=== PATIENT | female | born 1990 ===

== ENCOUNTER 2017-01-05 13:14 | Emergency (ER) | payer OTHER ==
[2017-01-05 13:15] VITALS: BMI 27.2
[2017-01-05 13:23] VITALS: BP 129/93; PULSE 73; RESP 16; TEMP 98.7; O2SAT 100
--- NOTE | 2017-01-05 13:52 | ED PDOC ---
Upper Extremity Pain/Injury Time Seen by Provider: 01/05/17 13:30 Chief Complaint (Nursing): Upper Extremity Problem/Injury Chief Complaint (Provider): Upper Extremity Problem/Injury History Per: Patient, Other (Boyfriend) History/Exam Limitations: no limitations Onset/Duration Of Symptoms: Days Current Symptoms Are (Timing): Still Present Additional Complaint(s): 26 y/o female presents to the emergency department with a complaint of a right shoulder pain since waking up this morning. Pain worsens with movement and is described as an intermittently sharp and tingling sensation radiating from the right shoulder down to the right elbow. Associated with dizziness (room spinning ) but had resolved since. As per history from boyfriend, patient was exercising her upper shoulders 2 days ago with 10 pound weight when she began to feel slight pain. Patient then exercised her shoulders again yesterday with five pound weight that made the pain worse. Reports using Bengay cream with minimal relief of pain Past Medical History Reviewed: Historical Data, Nursing Documentation, Vital Signs Vital Signs: Last Vital Signs Temp 98.7 F 01/05/17 13:20 Pulse 73 01/05/17 13:20 Resp 16 01/05/17 13:20 BP 129/93 H 01/05/17 13:20 Pulse Ox 100 01/05/17 13:20 - Medical History PMH: Migraine - Social History Current smoker - smoking cessation education provided: Yes (Light Smoker < 10 Cigarettes Daily ) Alcohol: Social Drugs: Cannabis - Home Medications Home Medications: Ambulatory Orders Medication Instructions Recorded No Known Home Med 01/05/17 - Allergies Allergies/Adverse Reactions: Allergies Allergy/AdvReac Type Severity Reaction Status Date / Time No Known Allergies Allergy Verified 01/05/17 13:20 Review of Systems ROS Statement: Except As Marked, All Systems Reviewed And Found Negative Cardiovascular: Negative for: Chest Pain Musculoskeletal: Positive for: Shoulder Pain (Right), Arm Pain (Right), Other ( Intermittent tinging radiating from the right shoulder that stops at the right elbow. ). Negative for: Back Pain Neurological: Positive for: Dizziness (Room spinning (had resolved since) ). Negative for: Numbness Physical Exam - Reviewed Nursing Documentation Reviewed: Yes Vital Signs Reviewed: Yes - Physical Exam Appears: Positive for: Non-toxic, No Acute Distress Head Exam: Positive for: ATRAUMATIC, NORMOCEPHALIC Skin: Positive for: Normal Color, Warm, Dry Extremity: Positive for: Normal ROM (Full ROM and rotation of the shoulder and elbow. Neurovascularly intact. Pronation and supination is normal. Axillary nerves intact. ). Negative for: Tenderness (No AC joint tenderness. No scapular tenderness. No clavicle tenderness. ), Deformity, Other ( Negative apprehension test) Neurologic/Psych: Positive for: Alert, Oriented - ECG O2 Sat by Pulse Oximetry: 100 (RA) Pulse Ox Interpretation: Normal Medical Decision Making Medical Decision Making: Time: 13:30 Initial impression: Shoulder strain status post injury Initial plan: --UPreg Test --Toradol 30 mg IM --Revaluation --Patient was advised to stay away from weight lifting x1 to 2 weeks. --If pain is persistent to follow up with orthopedic for an MRI and further testing. Scribe Attestation: Documented by Gina Austin, acting as a scribe for Yesica Daniels PA-C. Provider Scribe Attestation: All medical record entries made by the Scribe were at my direction and personally dictated by me. I have reviewed the chart and agree that the record accurately reflects my personal performance of the history, physical exam, medical decision making, and the department course for this patient. I have also personally directed, reviewed, and agree with the discharge instructions and disposition.
== END 2017-01-05 14:10 | disposition home or self-care (01) ==
LOC: H.ER 13:14
DX: M25.511 Pain in right shoulder (principal)

== ENCOUNTER 2017-06-25 13:47 | Emergency (ER) | payer MEDICAID, OTHER ==
[2017-06-25 13:47] VITALS: BMI 27.2
[2017-06-25 13:59] VITALS: O2SAT 100
[2017-06-25] MEDS ORDERED: Sodium Chloride 0.9% 1,000 ML IV STA ×2 (14:16→17:43)
--- NOTE | 2017-06-25 14:18 | ED PDOC ---
HPI: Abdomen Time Seen by Provider: 06/25/17 14:08 Chief Complaint (Nursing): Abdominal Pain Chief Complaint (Provider): Vomiting and diarrhea History Per: Patient Additional Complaint(s): 27 yo female, no PMH, presents to ED brought in by ambulance with c.o abdominal pain associated with nausea and vomiting since earlier today. Pt states she consumed an energy drink, banana and breakfast sandwich from waking up till ~ noon. Pt doing well prior to the onset of symptoms ~ 1.5 hours ago Past Medical History Reviewed: Nursing Documentation, Vital Signs Vital Signs: Last Vital Signs Temp 98.4 F 06/25/17 17:10 Pulse 62 06/25/17 17:10 Resp 18 06/25/17 17:10 BP 142/90 06/25/17 17:10 Pulse Ox 100 06/25/17 17:10 - Medical History PMH: Migraine - Surgical History Surgical History: No Surg Hx - Family History Family History: States: No Known Family Hx - Living Arrangements Living Arrangements: With Family - Social History Current smoker - smoking cessation education provided: No Alcohol: Social Drugs: Denies - Home Medications Home Medications: Ambulatory Orders Medication Instructions Recorded Ondansetron ODT [Zofran ODT] 4 mg PO Q6 PRN #10 odt 06/25/17 - Allergies Allergies/Adverse Reactions: Allergies Allergy/AdvReac Type Severity Reaction Status Date / Time No Known Allergies Allergy Verified 01/05/17 13:20 Review of Systems ROS Statement: Except As Marked, All Systems Reviewed And Found Negative Gastrointestinal: Positive for: Nausea, Vomiting, Abdominal Pain Physical Exam - Reviewed Nursing Documentation Reviewed: Yes Vital Signs Reviewed: Yes - Physical Exam Appears: Positive for: Non-toxic, No Acute Distress, Uncomfortable Head Exam: Positive for: ATRAUMATIC, NORMAL INSPECTION, NORMOCEPHALIC Skin: Positive for: Normal Color, Warm, DRY Eye Exam: Positive for: EOMI, Normal appearance, PERRL ENT: Positive for: Normal ENT Inspection Neck: Positive for: Normal, Painless ROM Cardiovascular/Chest: Positive for: Regular Rate, Rhythm Respiratory: Positive for: CNT, Normal Breath Sounds Gastrointestinal/Abdominal: Positive for: Normal Exam, Bowel Sounds, Soft. Negative for: Tenderness Back: Positive for: Normal Inspection Extremity: Positive for: Normal ROM Neurologic/Psych: Positive for: Alert, Oriented - Laboratory Results Result Diagrams: 06/25/17 14:25 06/25/17 14:25 - ECG O2 Sat by Pulse Oximetry: 100 Medical Decision Making Medical Decision Making: IV access established and treatment initiated with IVF, Zofran and Pepcid. Pt on re-eval report pain is improved, nausea continues. IV Reglan administered. On second re-eval, Pt asleep in NAD. Labs resulted and reviewed with Pt 19:00. Pt resting with boyfriend at bedside. Abdomen soft, non tender and non distended. Pt afebrile. Pt tolerating PO. Stable for discharge at this time. Disposition - Clinical Impression Clinical Impression: Gastroenteritis due to food toxin - Patient ED Disposition Is Patient to be Admitted: No - Disposition Disposition: Routine/Home Disposition Time: 20:12 Condition: STABLE Prescriptions: Ondansetron ODT [Zofran ODT] 4 mg PO Q6 PRN #10 odt PRN Reason: Nausea/Vomiting Instructions: Gastroenteritis (ED) Forms: [employer] (Malaysian)
[2017-06-25 14:33] LABS: BASO % 0.4 % (0.0-2.0); EOS % 0.3 % (0.0-4.0); HEMATOCRIT 41.6 % (34.0-47.0); LYMPH # 1.5 K/uL (1.0-4.3); LYMPH % 21.3 % (20.0-40.0); MEAN CELL VOLUME 101.3 fl (81.0-99.0); MEAN CORPUSCULAR HEMOGLOBIN 35.1 pg (27.0-31.0); MEAN CORPUSCULAR HGB CONC 34.7 g/dL (33.0-37.0); MEAN PLATELET VOLUME 8.8 fl (7.2-11.7); MONO # 0.3 K/uL (0.0-0.8); MONO % 4.3 % (0.0-10.0); NEUT # 5.2 K/uL (1.8-7.0); NEUT % 73.7 % (50.0-75.0); NRBC % 0.1 % (0.0-0.0)
[2017-06-25 14:44] LABS: ALB/GLOB RATIO 1.6 (1.0-2.1); ALKALINE PHOSPHATASE 57 U/L (38-126); ALT/SGPT 46 U/L (9-52); AST/SGOT 26 U/L (14-36); BILIRUBIN,TOTAL 0.6 mg/dl (0.2-1.3); BLOOD UREA NITROGEN 15 mg/dl (7-17); CALCIUM 9.5 mg/dL (8.4-10.2); CARBON DIOXIDE 24 mmol/L (22-30); CHLORIDE 107 mmol/L (98-107); GFR AFRICAN-AMERICAN > 60; GLUCOSE,RANDOM 115 mg/dL (65-105); POTASSIUM 3.8 MMOL/L (3.6-5.0); SODIUM 144 mmol/l (132-148); TOTAL PROTEIN 7.8 G/DL (6.3-8.2)
[2017-06-25 14:49] LABS: URINE BACTERIA RARE (<OCC); URINE BILIRUBIN NEGATIVE (NEGATIVE); URINE BLOOD SMALL (NEGATIVE); URINE COLOR YELLOW (YELLOW); URINE GLUCOSE (UA) NEG (Normal); URINE KETONE 20 mg/dL (NEGATIVE); URINE LEUKOCYTE ESTERASE NEG Leu/uL (Negative); URINE PROTEIN 100 mg/dL (NEGATIVE); URINE UROBILINOGEN 0.2-1.0 mg/dL (0.2-1.0)
[2017-06-25 14:50] LABS: RBC URINE 10 /hpf (0-3); WBC URINE 3 /hpf (0-5)
[2017-06-25 17:10] VITALS: RESP 18; TEMP 98.4
[2017-06-25 21:01] VITALS: BP 144/74; PULSE 74
== END 2017-06-25 21:07 | disposition home or self-care (01) ==
LOC: H.ER 13:47
DX: K52.9 Noninfective gastroenteritis and colitis, unspecified (principal)
CPT/HCPCS: 80053; 81003; 81025; 84702; 85025; 96361; 96374; 96375; 96376; 99283; J2405; J2765; J7040

== ENCOUNTER 2017-06-27 07:29 | Emergency (ER) | payer MEDICAID ==
[2017-06-27 07:32] VITALS: BMI 25.5
[2017-06-27] MEDS ORDERED: Sodium Chloride 0.9% 1,000 ML IV STA (08:36)
--- NOTE | 2017-06-27 08:52 | ED PDOC ---
HPI: Abdomen Time Seen by Provider: 06/27/17 08:04 Chief Complaint (Nursing): GI Problem Chief Complaint (Provider): Vomiting History Per: Patient History/Exam Limitations: no limitations Onset/Duration Of Symptoms: Days (x3) Current Symptoms Are (Timing): Still Present Additional Complaint(s): Kasey Skinner is a 27 year old female with a past medical history of migraines who presents to the ED complaining of vomiting x3 days. Patient was evaluated at the ED 2 days ago and discharged home with prescription for Zofran which she states she lost. Confirms abdominal pain. Denies fever, diarrhea, dysuria and hematuria. PMD: Provider TBD Past Medical History Reviewed: Historical Data, Nursing Documentation, Vital Signs Vital Signs: Last Vital Signs Temp 98.0 F 06/27/17 14:06 Pulse 56 L 06/27/17 14:06 Resp 18 06/27/17 14:06 BP 100/60 06/27/17 14:06 Pulse Ox 100 06/27/17 14:12 - Medical History PMH: Migraine - Surgical History Surgical History: No Surg Hx - Family History Family History: States: Unknown Family Hx - Social History Current smoker - smoking cessation education provided: Yes (<10 smokes per day) Alcohol: Social Drugs: Cannabis - Home Medications Home Medications: Ambulatory Orders Medication Instructions Recorded Ondansetron ODT [Zofran ODT] 4 mg PO Q6 PRN #10 odt 06/25/17 Dicyclomine [Bentyl] 20 mg PO QID PRN #10 tab 06/27/17 Famotidine [Pepcid] 20 mg PO BID #20 tab 06/27/17 Ondansetron [Zofran Odt] 4 mg PO Q8H PRN #15 odt 06/27/17 - Allergies Allergies/Adverse Reactions: Allergies Allergy/AdvReac Type Severity Reaction Status Date / Time No Known Allergies Allergy Verified 06/27/17 07:39 Review of Systems ROS Statement: Except As Marked, All Systems Reviewed And Found Negative Constitutional: Negative for: Fever Gastrointestinal: Positive for: Vomiting, Abdominal Pain. Negative for: Diarrhea Genitourinary Female: Negative for: Dysuria, Hematuria Physical Exam - Reviewed Nursing Documentation Reviewed: Yes Vital Signs Reviewed: Yes - Physical Exam Appears: Positive for: Non-toxic, In Acute Distress (Mild painful distress) Head Exam: Positive for: ATRAUMATIC, NORMAL INSPECTION, NORMOCEPHALIC Skin: Positive for: Normal Color, Warm, Dry Eye Exam: Positive for: EOMI, Normal appearance, PERRL Neck: Positive for: Normal, Painless ROM, Supple Cardiovascular/Chest: Positive for: Regular Rate, Rhythm. Negative for: Murmur Respiratory: Positive for: Normal Breath Sounds. Negative for: Respiratory Distress Gastrointestinal/Abdominal: Positive for: Soft, Tenderness (RLQ). Negative for : Guarding, Rebound Back: Positive for: Normal Inspection. Negative for: L CVA Tenderness, R CVA Tenderness, Vertebral Tenderness Extremity: Positive for: Normal ROM. Negative for: Pedal Edema, Deformity Neurologic/Psych: Positive for: Alert, Oriented - Laboratory Results Result Diagrams: 06/27/17 09:03 06/27/17 09:03 - ECG O2 Sat by Pulse Oximetry: 100 (RA) Pulse Ox Interpretation: Normal Medical Decision Making Medical Decision Making: Time: 08:35 Initial Impression: Ovarian torsion vs. appendicitis Plan: --CT Abdomen and Pelvis IV Contrast Only --CMP --Lipase --Urine --Urine dipstick --CBC w/ differential --Dilaudid 1 mg IV --Sodium Chloride 0.9% 1,000 ml IV --Zofran [Inj] 4 mg IV --Urinalysis --Reevaluation Time: 12:26 CT Abdomen/Pelvis: FINDINGS: LOWER THORAX: Minimal pleural thickening at the right base. LIVER: Unremarkable. No gross lesion or ductal dilatation. GALLBLADDER AND BILE DUCTS: Unremarkable. PANCREAS: Unremarkable. No gross lesion or ductal dilatation. SPLEEN: Unremarkable. ADRENALS: Unremarkable. No mass. KIDNEYS AND URETERS: Unremarkable. No hydronephrosis. No solid mass. VASCULATURE: Unremarkable. No aortic aneurysm. BOWEL: Unremarkable. No obstruction. No gross mural thickening. APPENDIX: Normal appendix. PERITONEUM: Unremarkable. No free fluid. No free air. LYMPH NODES: Unremarkable. No enlarged lymph nodes. BLADDER: Unremarkable. REPRODUCTIVE: Unremarkable. BONES: No acute fracture. OTHER FINDINGS: None. IMPRESSION: Essentially unremarkable contrast enhanced CT of the abdomen and pelvis. Time: 12:39 --Ordered US Pelvis/Transvag --Second dose IV zofran given Scribe Attestation: Documented by Jose Carlos Bro acting as a scribe for Elayne Gray MD. Scribe Attestation: All medical record entries made by the Scribe were at my direction and personally dictated by me. I have reviewed the chart and agree that the record accurately reflects my personal performance of the history, physical exam, medical decision making, and the department course for this patient. I have also personally directed, reviewed, and agree with the discharge instructions and disposition. Disposition - Clinical Impression Clinical Impression: Abdominal pain - Disposition Referrals: [facility] [Outside] Disposition: Routine/Home Disposition Time: 16:37 Condition: STABLE Prescriptions: Dicyclomine [Bentyl] 20 mg PO QID PRN #10 tab PRN Reason: Pain, Moderate (4-7) Famotidine [Pepcid] 20 mg PO BID #20 tab Ondansetron [Zofran Odt] 4 mg PO Q8H PRN #15 odt PRN Reason: Nausea/Vomiting Instructions: Abdominal Pain (ED) Forms: [employer] (Ukrainian)
[2017-06-27 09:14] LABS: BASO % 0.1 % (0.0-2.0); HEMATOCRIT 40.6 % (34.0-47.0); LYMPH # 0.9 K/uL (1.0-4.3); LYMPH % 11.7 % (20.0-40.0); MEAN CELL VOLUME 101.7 fl (81.0-99.0); MEAN CORPUSCULAR HEMOGLOBIN 35.3 pg (27.0-31.0); MEAN CORPUSCULAR HGB CONC 34.8 g/dL (33.0-37.0); MEAN PLATELET VOLUME 9.2 fl (7.2-11.7); MONO # 0.1 K/uL (0.0-0.8); MONO % 1.5 % (0.0-10.0); NEUT # 6.4 K/uL (1.8-7.0); NEUT % 86.7 % (50.0-75.0); NRBC % 0.1 % (0.0-0.0); RED CELL DISTRIBUTION WIDTH 13.2 % (11.5-14.5); WHITE BLOOD COUNT 7.3 K/uL (4.8-10.8)
[2017-06-27 09:19] LABS: ALB/GLOB RATIO 1.6 (1.0-2.1); ALKALINE PHOSPHATASE 44 U/L (38-126); ALT/SGPT 40 U/L (9-52); AST/SGOT 21 U/L (14-36); BILIRUBIN,TOTAL 0.5 mg/dl (0.2-1.3); BLOOD UREA NITROGEN 12 mg/dl (7-17); CALCIUM 8.8 mg/dL (8.4-10.2); CARBON DIOXIDE 26 mmol/L (22-30); CHLORIDE 105 mmol/L (98-107); GFR AFRICAN-AMERICAN > 60; GLUCOSE,RANDOM 133 mg/dL (65-105); LIPASE 63 U/L (23-300); POTASSIUM 3.4 MMOL/L (3.6-5.0); SODIUM 139 mmol/l (132-148); TOTAL PROTEIN 7.1 G/DL (6.3-8.2)
[2017-06-27] MEDS ORDERED: Iohexol 300 100 ML IJ ONE (11:20)
[2017-06-27] MEDS ORDERED: Sodium Chloride 0.9% 50 ML IV ONE (11:21)
--- NOTE | 2017-06-27 12:28 | CT ---
PROCEDURE: CT Abdomen and Pelvis with contrast HISTORY: RLQ pain COMPARISON: 04/24/2015. TECHNIQUE: Contrast dose: Radiation dose: Total exam DLP = mGy-cm. This CT exam was performed using one or more of the following dose reduction techniques: Automated exposure control, adjustment of the mA and/or kV according to patient size, and/or use of iterative reconstruction technique. FINDINGS: LOWER THORAX: Minimal pleural thickening at the right base. LIVER: Unremarkable. No gross lesion or ductal dilatation. GALLBLADDER AND BILE DUCTS: Unremarkable. PANCREAS: Unremarkable. No gross lesion or ductal dilatation. SPLEEN: Unremarkable. ADRENALS: Unremarkable. No mass. KIDNEYS AND URETERS: Unremarkable. No hydronephrosis. No solid mass. VASCULATURE: Unremarkable. No aortic aneurysm. BOWEL: Unremarkable. No obstruction. No gross mural thickening. APPENDIX: Normal appendix. PERITONEUM: Unremarkable. No free fluid. No free air. LYMPH NODES: Unremarkable. No enlarged lymph nodes. BLADDER: Unremarkable. REPRODUCTIVE: Unremarkable. BONES: No acute fracture. OTHER FINDINGS: None. IMPRESSION: Essentially unremarkable contrast enhanced CT of the abdomen and pelvis.
[2017-06-27 14:07] VITALS: BP 100/60; PULSE 56; RESP 18; TEMP 98; O2SAT 100
[2017-06-27] MEDS ORDERED: Potassium Chloride 20 mEq ER Tab PO STA (16:01)
[2017-06-27] MEDS ORDERED: Potassium Chloride 20 mEq ER Tab PO ONE (16:19)
--- NOTE | 2017-06-27 17:19 | US ---
HISTORY: Right lower quadrant pain. Menstrual status: LMP 05/28/2017. Regular cycles COMPARISON: June 27, 2017. CT abdomen and pelvis. 04/24/2015 pelvic ultrasound TECHNIQUE: Transabdominal, transvaginal. Real -time technique with 2D, duplex and color Doppler. FINDINGS: UTERUS: Measures 3.2 x 5.6 x 8.8 cm. Normal in size and appearance. No fibroid or other mass lesion seen. ENDOMETRIUM: Measures 3.4 mm in diameter. No ultrasound findings to suggest gestational sac, fluid, debris, mass or polyp or other pathologic process within the endometrium. CERVIX: No cervical abnormality identified. RIGHT OVARY: Measures 1.5 x 2.2 x 2.4 cm. No solid mass. Normal flow. Multiple subcentimeter follicles. LEFT OVARY: Measures 1.9 x 3.2 x 3.5 cm. No solid mass. Normal flow. Multiple subcentimeter follicles. FREE FLUID: No significant free fluid noted. OTHER FINDINGS: None. IMPRESSION: No significant or acute findings to account for/ related to the clinical presentation.
== END 2017-06-27 16:42 | disposition home or self-care (01) ==
LOC: H.ER 07:29
DX: R10.9 Unspecified abdominal pain (principal)
CPT/HCPCS: 74177; 76830; 76856; 80053; 81025; 83690; 85025; 96361; 96374; 96375; 96376; 99284; J1170; J1885; J2405; J7040; Q9967

== ENCOUNTER 2017-10-29 20:30 | Emergency (ER) | payer SELFPAY ==
[2017-10-29 20:30] VITALS: BMI 25.5
[2017-10-29 21:42] VITALS: BP 136/97; PULSE 69; RESP 18; TEMP 97.9; O2SAT 100
[2017-10-29] MEDS ORDERED: Sodium Chloride 0.9% 1,000 ML IV STA (22:10)
--- NOTE | 2017-10-29 23:34 | ED PDOC ---
HPI: Headache Time Seen by Provider: 10/29/17 21:54 Chief Complaint (Nursing): Headache Chief Complaint (Provider): Headache History Per: Patient History/Exam Limitations: no limitations Onset/Duration Of Symptoms: Hrs (x7) Current Symptoms Are (Timing): Still Present Associated Symptoms: Photophobia, Nausea, Vomiting Additional Complaint(s): 27 year old female presents to ED with complaints of headache x7 hours and has a past medical history of migraines. Patient notes headache is not thunderclap nor was it maximal upon onset. (+) nausea, vomiting x1 episode, and photophobia. Patient notes headache is not the worst one she has ever experienced. PCP: Non H provider - Risk Factors SAH Risk Factors: Neg: Worst Headache Of Life Past Medical History Reviewed: Historical Data, Nursing Documentation, Vital Signs Vital Signs: Last Vital Signs Temp 97.9 F 10/29/17 21:40 Pulse 69 10/29/17 21:40 Resp 18 10/29/17 21:40 BP 136/97 H 10/29/17 21:40 Pulse Ox 100 10/29/17 21:40 - Medical History PMH: Migraine - Family History Family History: States: Unknown Family Hx - Social History Current smoker - smoking cessation education provided: Yes (light smoker) Ex-Smoker (has not smoked in the last 12 months): No Alcohol: Social Drugs: Cannabis - Home Medications Home Medications: Ambulatory Orders Medication Instructions Recorded Ondansetron ODT [Zofran ODT] 4 mg PO Q6 PRN #10 odt 06/25/17 Dicyclomine [Bentyl] 20 mg PO QID PRN #10 tab 06/27/17 Famotidine [Pepcid] 20 mg PO BID #20 tab 06/27/17 Ondansetron [Zofran Odt] 4 mg PO Q8H PRN #15 odt 06/27/17 Ketorolac Tromethamine [Toradol] 10 mg PO BID #30 tab 10/29/17 - Allergies Allergies/Adverse Reactions: Allergies Allergy/AdvReac Type Severity Reaction Status Date / Time No Known Allergies Allergy Verified 06/27/17 07:39 Review of Systems ROS Statement: Except As Marked, All Systems Reviewed And Found Negative Eyes: Positive for: Other ((+) photophobia) Gastrointestinal: Positive for: Nausea, Vomiting (x1 episode) Neurological: Positive for: Headache Physical Exam - Reviewed Nursing Documentation Reviewed: Yes Vital Signs Reviewed: Yes - Physical Exam Appears: Positive for: Non-toxic, Uncomfortable Skin: Positive for: Normal Color, Warm, Dry Eye Exam: Positive for: Normal appearance, EOMI, PERRL Cardiovascular/Chest: Positive for: Regular Rate, Rhythm. Negative for: Murmur Respiratory: Positive for: Normal Breath Sounds. Negative for: Respiratory Distress Gastrointestinal/Abdominal: Positive for: Soft. Negative for: Tenderness Neurologic/Psych: Positive for: Alert, information systems planner II-XII (intact), Oriented, Cerebellar Tests (intact), Gait (steady). Negative for: Motor/Sensory Deficits - ECG O2 Sat by Pulse Oximetry: 100 (RA) Pulse Ox Interpretation: Normal Medical Decision Making Medical Decision Makin Initial impression: migraine headache Initial plan: * NS IV * Reglan 10mg IVPB * Toradol 30mg IVP * Re-eval 2338 Upon re-evaluation patient notes improvement in symptoms and is stable for discharge home. Return precautions given, such as worsening symptoms. Patient will follow up with PCP in 1-2 days. Scribe Attestation: Documented by Patience Villegas acting as a scribe for Alexei Garcia MD. DO Scribe Attestation: All medical record entries made by the Scribe were at my direction and personally dictated by me. I have reviewed the chart and agree that the record accurately reflects my personal performance of the history, physical exam, medical decision making, and the department course for this patient. I have also personally directed, reviewed, and agree with the discharge instructions and disposition. Disposition - Clinical Impression Clinical Impression: Migraine - Disposition Referrals: Jeet Rushing MD [Medical Doctor] - Disposition: Routine/Home Disposition Time: 23:38 Condition: STABLE Prescriptions: Ketorolac Tromethamine [Toradol] 10 mg PO BID #30 tab Instructions: Migraine Headaches in Adults Forms: [employer] (Divehi)
== END 2017-10-29 23:55 | disposition home or self-care (01) ==
LOC: H.ER 20:30
DX: G43.909 Migraine, unspecified, not intractable, without status migrainosus (principal); F17.200 Nicotine dependence, unspecified, uncomplicated
CPT/HCPCS: 96374; 99283; J1885; J2765; J7040